=== PATIENT | male | born 1985 | race Caucasian/White ===

== ENCOUNTER 2020-04-15 11:20 | Emergency (ER) | payer BC, OTHER ==
--- NOTE | 2020-04-15 13:10 | CR ---
INDICATION: Crush injury in auger. LEFT THIRD FINGER: Three views of the left third finger revealed soft tissue swelling overlying the proximal interphalangeal joint. A fracture, dislocation or other significant bone or joint abnormality, was not identified. If symptoms persist - if occult fracture site is suspected clinically, reexamination in 10 to 14 days may be helpful. MTDD
--- NOTE | 2020-04-15 13:33 | EDM.PDOC ---
ED HPI GENERAL MEDICAL PROBLEM - General Chief Complaint: Laceration Stated Complaint: SMASHED A FINGER ON LEFT HAND Time Seen by Provider: 04/15/20 12:40 Source of Information: Reports: Patient History Limitations: Reports: No Limitations - History of Present Illness INITIAL COMMENTS - FREE TEXT/NARRATIVE: c/o finger injury working outside, an auger came down and pinned left middle finger against a piece of middle, did have spontaneous bleeding on the palmar aspect last Td 4y ago Left Finger-Middle Pain Score (Numeric/FACES): 4 - Related Data Allergies Allergy/AdvReac Type Severity Reaction Status Date / Time No Known Allergies Allergy Verified 04/15/20 11:42 Home Meds: Home Meds NK [No Known Home Meds] 04/15/20 [History] Past Medical History - Past Health History Medical/Surgical History: Denies Medical/Surgical History Social & Family History - Tobacco Use Smoking Status *Q: Unknown Ever Smoked ED ROS GENERAL - Review of Systems Review Of Systems: See Below Constitutional: Reports: No Symptoms HEENT: Reports: No Symptoms Respiratory: Reports: No Symptoms Cardiovascular: Reports: No Symptoms Endocrine: Reports: No Symptoms GI/Abdominal: Reports: No Symptoms : Reports: No Symptoms Musculoskeletal: Reports: Other (finger injury) Skin: Reports: No Symptoms Neurological: Reports: No Symptoms Psychiatric: Reports: No Symptoms Hematologic/Lymphatic: Reports: No Symptoms Immunologic: Reports: No Symptoms ED EXAM, SKIN/RASH Exam: See Below Exam Limited By: No Limitations General Appearance: Alert, WD/WN Extremities: Other (right middle finger with swell and increase in size 25% in around the middle phalange with sparing of the DIP and PIP, good flex/ext all joints, no ecchymosis, there is a small 1 mm hole on the volar aspect in the midline were a small amount of RBC had drained, no d/c now, nailbed wnl, tip of finger with normal sensation) Course - Vital Signs Last Recorded V/S: Last Vital Signs Temp 36.7 C 04/15/20 11:40 Pulse 84 04/15/20 11:40 Resp 16 04/15/20 11:40 BP 145/82 H 04/15/20 11:40 Pulse Ox 99 04/15/20 11:40 - Re-Assessments/Exams Free Text/Narrative Re-Assessment/Exam: 04/15/20 13:33 XR finger neg on prelim ED read, finger splint surrounding finger (padded metal) provided f/u with PCP not to use finger will need to be rechecked if swelling excessive Departure - Departure Time of Disposition: 13:27 Disposition: Home, Self-Care 01 Condition: Good Clinical Impression: Crushing injury of finger of left hand - Discharge Information *PRESCRIPTION DRUG MONITORING PROGRAM REVIEWED*: Not Applicable *COPY OF PRESCRIPTION DRUG MONITORING REPORT IN PATIENT YNES: Not Applicable Instructions: Crush Injury of the Hand Referrals: Azalia Walker NP [Primary Care Provider] - Forms: ED Department Discharge, ED Return to Work/School Form Additional Instructions: My work tomorrow. However do not use your left middle finger. Do not apply any pressure to the finger. May use the splint to protect the finger. For pain and inflammation and swelling and healing, take ibuprofen 200 mg 4 tabs 3 times a day for 5 days, longer if needed. See your physician in 3-4 days for further evaluation and recommendations. Sepsis Event Note (ED) - Evaluation Sepsis Screening Result: No Definite Risk - Focused Exam Vital Signs: Vital Signs Temp Pulse Resp BP Pulse Ox 04/15/20 11:40 36.7 C 84 16 145/82 H 99
== END 2020-04-15 13:42 | disposition home or self-care (01) ==
LOC: FB.ED 11:20
DX: S67.193A Crushing injury of left middle finger, initial encounter (principal); W23.0XXA Caught, crushed, jammed, or pinched between moving objects, initial encounter
CPT/HCPCS: 73140-F2; 99283; 99283-25